=== PATIENT | female | born 1940 | race Hispanic/Latino ===

== ENCOUNTER 2017-10-14 15:07 | Emergency (ER) | payer MEDICARE ==
[2017-10-14 15:30] VITALS: BP 172/82
== END 2017-10-14 15:29 | disposition left against medical advice (07) ==
LOC: ED 15:07
DX: Z00.00 Encounter for general adult medical examination without abnormal findings (principal); Z53.21 Procedure and treatment not carried out due to patient leaving prior to being seen by health care provider